=== PATIENT | female | born 1930 | race Caucasian/White ===

== ENCOUNTER 2016-12-15 13:47 | Inpatient (IN) | payer OTHER ==
[~2016-12-15] VITALS: Ht 160 cm; Wt 67.7 kg
[~2016-12-15 13:47] MED LIST: DIOVAN80 MG PO; HYDROCHLOROTHIA50 MG PO; HYDROCODON-ACE1 EAC7 PO; KEFLEX500 MG PO; PLAVIX75 MG PO; TOPROL XL50 MG PO; TRAMADOL HCL50 MG PO; TYLENOL EXTRA500 MG PO; ZYRTEC10 M2 PO
[2016-12-15 14:55] LABS: EOSINOPHIL (%) 0.5 % (0-5); HEMATOCRIT 34.9 % (36.0-46.0); IMMATURE GRANULOCYTE (%) 0.5 % (0.0-0.7); IMMATURE GRANULOCYTE COUNT 0.4 K/uL; LYMPHOCYTE COUNT 1.4 K/uL (1.0-2.8); MCH 30.7 PG (29.0-34.0); MCHC 33.5 G/DL (30.0-36.0); MCV 91.6 FL (83-99); MONOCYTE COUNT 0.5 K/uL (0-0.8); NEUTROPHIL (%) 75.9 % (45-76); NEUTROPHIL COUNT 6.3 K/uL (1.8-6.4); PLATELET COUNT 285 K/uL (156-360); RBC DIS.WIDTH-CV 13.2 % (11.8-14.6); RBC DIS.WIDTH-SD 43.2 % (39-53); RED BLOOD COUNT 3.81 M/uL (3.80-5.20); WHITE BLOOD COUNT 8.3 K/uL (4.1-10.2)
[2016-12-15 15:03] LABS: CHLORIDE 100 mEq/L (99-109); POTASSIUM 3.8 mEq/L (3.7-5.4); SODIUM 137 mEq/L (136-147)
[2016-12-15 15:05] LABS: GLUCOSE 173 mg/dL (70-99)
[2016-12-15 15:06] LABS: ANION GAP 11 MEQ/L (2-14)
[2016-12-15 15:09] LABS: GFR ESTIMATE (CALCULATED) 21 mL/min/
[2016-12-15 15:10] LABS: UREA NITROGEN (BUN) 94 mg/dL (9-23)
[2016-12-15 15:15] LABS: TROP-I INTERPRETATION NEGATIVE; TROPONIN-I 0.03 ng/mL (0.0-0.30)
[2016-12-15] MEDS ORDERED: TOPROL XL50 MG PO (21:06)
[2016-12-15] MEDS ORDERED: DIOVAN80 MG PO (21:06)
[2016-12-15] MEDS ORDERED: HYDROCHLOROTHIA50 MG PO (21:06)
[2016-12-15 22:07] LABS: ADD MIUA? YES; BILIRUBIN NEGATIVE; BLOOD NEGATIVE; COLOR YELLOW ((YELLOW)); GLUCOSE (STRIP) 100; KETONES NEGATIVE; LEUKOCYTES NEGATIVE; NITRITE NEGATIVE; PROTEIN (STRIP) NEGATIVE; SPECIFIC GRAVITY 1.023 (1.000-1.030); UROBILINOGEN 0.2 MG/DL (0.2-1.0)
[2016-12-15 22:26] LABS: BACTERIA NONE SEEN /HPF; CASTS NONE SEEN /LPF; CRYSTALS NONE SEEN; EPITHELIAL CELLS RARE /HPF; MUCUS NONE SEEN /LPF; PATHOLOGICAL CAST NONE SEEN; RED BLOOD CELLS 0-5 /HPF (0-5); SMALL ROUND CELL NONE SEEN; UCUL ADDED? NO; WHITE BLOOD CELLS 0-5 /HPF (0-5); YEAST-LIKE CELL NONE SEEN
[2016-12-15 23:15] VITALS: BP 180/80
[2016-12-16] VITALS (7 sets, daily range): BP systolic 112–190; BP diastolic 53–81
[2016-12-16 08:00] LABS: ANION GAP 11 MEQ/L (2-14); CHLORIDE 102 MEQ/L (99-109); POTASSIUM 3.3 MEQ/L (3.7-5.4); SAMPLE HEMOLYSIS CHECK 0; SAMPLE ICTERIC CHECK 0; SAMPLE LIPEMIA CHECK 0; SODIUM 138 MEQ/L (136-147); UREA NITROGEN (BUN) 65 mg/dL (9-23)
[2016-12-16 08:05] LABS: GFR ESTIMATE (CALCULATED) 35 mL/min/; GLUCOSE 113 mg/dL (70-99)
[2016-12-16 08:19] LABS: HEMATOCRIT 31.8 % (36.0-46.0); MCH 29.6 PG (29.0-34.0); MCHC 32.4 G/DL (30.0-36.0); MCV 91.4 FL (83-99); MEAN PLAT.VOLUME 10.2 uM^3 (9.5-12.4); PLATELET COUNT 234 K/uL (156-360); RBC DIS.WIDTH-CV 13.4 % (11.8-14.6); RBC DIS.WIDTH-SD 44.2 % (39-53); RED BLOOD COUNT 3.48 M/uL (3.80-5.20)
[2016-12-16 08:20] LABS: WHITE BLOOD COUNT 5.7 K/uL (4.1-10.2)
[2016-12-16 09:53] LABS: Estimated Average Glucose 123 mg/dL (70-123); HEMOGLOBIN A1c (GLYCOHEMOGLOB) 5.9 % HGB (Below 5.7)
[2016-12-16 10:32] LABS: ALKALINE PHOSPHATASE 62 IU/L (3-129); DIRECT BILIRUBIN 0.2 mg/dL (0.0-0.3); MAGNESIUM 1.9 mg/dl (1.3-2.7); TOTAL BILIRUBIN 0.8 MG/DL (0.0-1.0)
[2016-12-17] VITALS (8 sets, daily range): BP systolic 104–168; BP diastolic 52–73
[2016-12-17 07:29] LABS: EOSINOPHIL (%) 2.4 % (0-5); EOSINOPHIL COUNT 0.2 K/uL (0-0.3); HEMATOCRIT 32.5 % (36.0-46.0); IMMATURE GRANULOCYTE (%) 0.2 % (0.0-0.7); LYMPHOCYTE COUNT 2.4 K/uL (1.0-2.8); MCH 30.3 PG (29.0-34.0); MCHC 32.6 G/DL (30.0-36.0); MCV 92.9 FL (83-99); MEAN PLAT.VOLUME 10.2 uM^3 (9.5-12.4); MONOCYTE (%) 6.1 % (3-12); MONOCYTE COUNT 0.4 K/uL (0-0.8); NEUTROPHIL (%) 55.3 % (45-76); NEUTROPHIL COUNT 3.6 K/uL (1.8-6.4); PLATELET COUNT 226 K/uL (156-360); RBC DIS.WIDTH-CV 13.4 % (11.8-14.6); RBC DIS.WIDTH-SD 45.2 % (39-53); WHITE BLOOD COUNT 6.6 K/uL (4.1-10.2)
[2016-12-17 07:58] LABS: ALKALINE PHOSPHATASE 56 IU/L (3-129); ANION GAP 10 MEQ/L (2-14); CHLORIDE 102 MEQ/L (99-109); GFR ESTIMATE (CALCULATED) 41 mL/min/; GLUCOSE 107 mg/dL (70-99); SAMPLE HEMOLYSIS CHECK 0; SAMPLE ICTERIC CHECK 0; SAMPLE LIPEMIA CHECK 0; SODIUM 135 MEQ/L (136-147); TOTAL BILIRUBIN 0.7 MG/DL (0.0-1.0); UREA NITROGEN (BUN) 42 mg/dL (9-23)
[2016-12-17 10:26] LABS: ABSOLUTE RETICULOCYTE CT. 0.04 M/uL (0.02-0.08); IMM.RETIC FRACTION 2.8 % (3-19); RETICULOCYTE COUNT 1.1 % (0.5-1.8)
[2016-12-17 11:23] LABS: IRON 75 MCG/DL (35-150)
[2016-12-18 03:26] VITALS: BP 122/63
[2016-12-18 07:50] VITALS: BP 130/59
[2016-12-18 07:56] LABS: EOSINOPHIL (%) 2.9 % (0-5); EOSINOPHIL COUNT 0.2 K/uL (0-0.3); HEMATOCRIT 30.8 % (36.0-46.0); IMMATURE GRANULOCYTE (%) 0.6 % (0.0-0.7); LYMPHOCYTE COUNT 2.3 K/uL (1.0-2.8); MCH 30.4 PG (29.0-34.0); MCHC 32.5 G/DL (30.0-36.0); MCV 93.6 FL (83-99); MEAN PLAT.VOLUME 10.6 uM^3 (9.5-12.4); MONOCYTE (%) 6.5 % (3-12); MONOCYTE COUNT 0.4 K/uL (0-0.8); NEUTROPHIL COUNT 3.7 K/uL (1.8-6.4); PLATELET COUNT 228 K/uL (156-360); RBC DIS.WIDTH-CV 13.5 % (11.8-14.6); RBC DIS.WIDTH-SD 46.3 % (39-53); RED BLOOD COUNT 3.29 M/uL (3.80-5.20); WHITE BLOOD COUNT 6.6 K/uL (4.1-10.2)
[2016-12-18 08:07] LABS: ALKALINE PHOSPHATASE 56 IU/L (3-129); ANION GAP 7 MEQ/L (2-14); CHLORIDE 103 MEQ/L (99-109); GFR ESTIMATE (CALCULATED) 45 mL/min/; GLUCOSE 113 mg/dL (70-99); POTASSIUM 3.7 MEQ/L (3.7-5.4); SAMPLE HEMOLYSIS CHECK 0; SAMPLE ICTERIC CHECK 0; SAMPLE LIPEMIA CHECK 0; SODIUM 137 MEQ/L (136-147); UREA NITROGEN (BUN) 31 mg/dL (9-23)
[2016-12-18 08:13] LABS: TOTAL BILIRUBIN 0.5 MG/DL (0.0-1.0)
[2016-12-18 12:00] VITALS: BP 176/75
== END 2016-12-18 15:30 | DRG 675 ==
LOC: EME → EDBD 13:47 → 2EASTP 16:13 → EDOF 16:13 → 2EASTP 22:41
PROVIDERS: Emergency Medicine; Hospitalist
DX: N17.9 Acute kidney failure, unspecified (principal); E87.6 Hypokalemia; I11.9 Hypertensive heart disease without heart failure; E88.09 Other disorders of plasma-protein metabolism, not elsewhere classified; E86.0 Dehydration; Z60.2 Problems related to living alone; I65.21 Occlusion and stenosis of right carotid artery; R63.0 Anorexia; J44.9 Chronic obstructive pulmonary disease, unspecified; G47.00 Insomnia, unspecified; F41.9 Anxiety disorder, unspecified; R73.9 Hyperglycemia, unspecified; D64.9 Anemia, unspecified; I25.118 Atherosclerotic heart disease of native coronary artery with other forms of angina pectoris; E66.9 Obesity, unspecified; E78.5 Hyperlipidemia, unspecified; H40.9 Unspecified glaucoma; I27.2 Other secondary pulmonary hypertension; I35.0 Nonrheumatic aortic (valve) stenosis; I35.8 Other nonrheumatic aortic valve disorders; Z68.26 Body mass index [BMI] 26.0-26.9, adult; I25.2 Old myocardial infarction
CPT/HCPCS: 71020; 80048; 80053; 80076; 81003; 82272; 82607; 82728; 82746; 82948; 83036; 83540; 83735; 84466; 84484; 85025; 85027; 85045; 93005; 93306; 93970; 99281; 99285; J1644; J1815; J3480; J7030

== ENCOUNTER 2017-01-29 18:48 | Emergency (ER) | payer OTHER ==
[~2017-01-29] VITALS: Ht 152.4 cm; Wt 74.4 kg
[2017-01-29 19:57] LABS: HEMATOCRIT 33.6 % (36.0-46.0); MCH 29.9 PG (29.0-34.0); MCHC 31.5 G/DL (30.0-36.0); MCV 94.9 FL (83-99); MEAN PLAT.VOLUME 9.5 uM^3 (9.5-12.4); PLATELET COUNT 274 K/uL (156-360); RBC DIS.WIDTH-CV 14.5 % (11.8-14.6); RBC DIS.WIDTH-SD 50.6 % (39-53); RED BLOOD COUNT 3.54 M/uL (3.80-5.20)
[2017-01-29 20:08] LABS: CHLORIDE 101 mEq/L (99-109); POTASSIUM 3.4 mEq/L (3.7-5.4); SODIUM 141 mEq/L (136-147)
[2017-01-29 20:10] LABS: GLUCOSE 121 mg/dL (70-99)
[2017-01-29 20:11] LABS: ANION GAP 11 MEQ/L (2-14)
[2017-01-29 20:13] LABS: GFR ESTIMATE (CALCULATED) 45 mL/min/
[2017-01-29 20:14] LABS: UREA NITROGEN (BUN) 24 mg/dL (9-23)
[2017-01-29 21:33] LABS: ADD MIUA? YES; BILIRUBIN NEGATIVE; BLOOD SMALL; COLOR YELLOW ((YELLOW)); GLUCOSE (STRIP) NEGATIVE; KETONES NEGATIVE; LEUKOCYTES NEGATIVE; NITRITE NEGATIVE; PROTEIN (STRIP) NEGATIVE; SPECIFIC GRAVITY 1.009 (1.000-1.030); UROBILINOGEN 0.2 MG/DL (0.2-1.0)
[2017-01-29 21:52] LABS: BACTERIA NONE SEEN /HPF; EPITHELIAL CELLS RARE /HPF; HYALINE CASTS 0-5 /LPF; MUCUS TRACE /LPF; RED BLOOD CELLS 0-5 /HPF (0-5); WHITE BLOOD CELLS 0-5 /HPF (0-5)
[2017-01-29 22:51] VITALS: BP 142/65
== END 2017-01-29 22:52 | disposition home or self-care (01) ==
LOC: EME → EDBD 18:48 → EME 22:52
PROVIDERS: Emergency Medicine
DX: K64.4 Residual hemorrhoidal skin tags (principal); K62.5 Hemorrhage of anus and rectum; I10 Essential (primary) hypertension
CPT/HCPCS: 80048; 81003; 85027; 86850; 86900; 86901; 87086; 99281; 99285; J7030

== ENCOUNTER 2017-03-03 20:32 | Emergency (ER) | payer OTHER ==
[~2017-03-03] VITALS: Ht 160 cm; Wt 75.7 kg
[2017-03-03 21:39] LABS: EOSINOPHIL COUNT 0.2 K/uL (0-0.3); HEMATOCRIT 32.6 % (36.0-46.0); IMMATURE GRANULOCYTE (%) 0.3 % (0.0-0.7); INSTRUMENT ABS NEUTROPHIL CT 4.7 K/uL; MCH 30.6 PG (29.0-34.0); MCHC 31.3 G/DL (30.0-36.0); MCV 97.9 FL (83-99); MEAN PLAT.VOLUME 9.2 uM^3 (9.5-12.4); MONOCYTE (%) 6.9 % (3-12); MONOCYTE COUNT 0.5 K/uL (0-0.8); NEUTROPHIL (%) 63.3 % (45-76); NEUTROPHIL COUNT 4.7 K/uL (1.8-6.4); PLATELET COUNT 241 K/uL (156-360); RBC DIS.WIDTH-CV 14.2 % (11.8-14.6); RBC DIS.WIDTH-SD 50.7 % (39-53); RED BLOOD COUNT 3.33 M/uL (3.80-5.20); WHITE BLOOD COUNT 7.4 K/uL (4.1-10.2)
[2017-03-03 21:48] LABS: CHLORIDE 103 mEq/L (99-109); POTASSIUM 4.4 mEq/L (3.7-5.4); SODIUM 143 mEq/L (136-147)
[2017-03-03 21:50] LABS: GLUCOSE 122 mg/dL (70-99)
[2017-03-03 21:51] LABS: ANION GAP 10 MEQ/L (2-14)
[2017-03-03 21:52] LABS: TOTAL BILIRUBIN 0.4 mg/dL (0.0-1.0)
[2017-03-03 21:54] LABS: ALKALINE PHOSPHATASE 73 IU/L (3-129); GFR ESTIMATE (CALCULATED) 35 mL/min/
[2017-03-03 21:55] LABS: UREA NITROGEN (BUN) 24 mg/dL (9-23)
[2017-03-03 21:59] LABS: TROP-I INTERPRETATION NEGATIVE; TROPONIN-I 0.02 ng/mL (0.0-0.30)
[2017-03-03 22:46] LABS: ADD MIUA? NO; BILIRUBIN NEGATIVE; BLOOD NEGATIVE; COLOR STRAW ((YELLOW)); GLUCOSE (STRIP) NEGATIVE; KETONES NEGATIVE; LEUKOCYTES NEGATIVE; NITRITE NEGATIVE; PROTEIN (STRIP) NEGATIVE; UCUL ADDED? NO; UROBILINOGEN 0.2 MG/DL (0.2-1.0)
[2017-03-04 01:14] VITALS: BP 180/77
== END 2017-03-04 01:13 | disposition home or self-care (01) ==
LOC: EME 20:32
PROVIDERS: Emergency Medicine
DX: R51 Headache (principal); I10 Essential (primary) hypertension; H53.8 Other visual disturbances; E11.9 Type 2 diabetes mellitus without complications; J44.9 Chronic obstructive pulmonary disease, unspecified; I25.2 Old myocardial infarction; Z85.42 Personal history of malignant neoplasm of other parts of uterus
CPT/HCPCS: 70450; 71010; 80053; 81003; 83880; 84484; 85025; 93005; 99281; 99284

== ENCOUNTER 2018-04-01 12:18 | Emergency (ER) | payer OTHER ==
[~2018-04-01] VITALS: Ht 162.6 cm; Wt 80.9 kg
[2018-04-01 12:53] LABS: HEMATOCRIT 32.4 % (36.0-46.0); HEMOGLOBIN 10.7 G/DL (11.9-15.5); MCH 32.4 PG (29.0-34.0); MCV 98.2 FL (83-99); PLATELET COUNT 203 K/uL (156-360); RBC DIS.WIDTH-CV 12.7 % (11.8-14.6); RBC DIS.WIDTH-SD 45.5 % (39-53); WHITE BLOOD COUNT 5.3 K/uL (4.1-10.2)
[2018-04-01 13:01] LABS: CHLORIDE 98 mEq/L (99-109); SODIUM 141 mEq/L (136-147)
[2018-04-01 13:03] LABS: GLUCOSE 118 mg/dL (70-99)
[2018-04-01 13:07] LABS: CREATININE 1.3 mg/dL (0.6-1.3); GFR ESTIMATE (CALCULATED) 41 mL/min/
[2018-04-01 13:08] LABS: UREA NITROGEN (BUN) 38 mg/dL (9-23)
[2018-04-01 14:06] LABS: TROP-I INTERPRETATION NEGATIVE; TROPONIN-I 0.01 ng/mL (0.0-0.30)
[2018-04-01 18:36] VITALS: BP 154/58
[2018-04-02] MEDS ORDERED: ANUSOL-HC21 GM PR (14:09)
== END 2018-04-01 19:35 | disposition home or self-care (01) ==
LOC: EME 12:18
PROVIDERS: Family Medicine
DX: K57.30 Diverticulosis of large intestine without perforation or abscess without bleeding (principal); R41.0 Disorientation, unspecified; I10 Essential (primary) hypertension; J44.9 Chronic obstructive pulmonary disease, unspecified; E11.9 Type 2 diabetes mellitus without complications; I25.2 Old myocardial infarction; Z85.42 Personal history of malignant neoplasm of other parts of uterus; Z88.8 Allergy status to other drugs, medicaments and biological substances
CPT/HCPCS: 71046; 74176; 80048; 83880; 84484; 85027; 93005; 99281; 99285

== ENCOUNTER 2018-04-02 11:51 | Emergency (ER) | payer OTHER ==
[~2018-04-02] VITALS: Ht 165.1 cm; Wt 81.3 kg
[2018-04-02 13:13] LABS: BASOPHIL (%) 0.2 % (0-1); EOSINOPHIL (%) 1.5 % (0-5); EOSINOPHIL COUNT 0.1 K/uL (0-0.3); HEMATOCRIT 34.1 % (36.0-46.0); HEMOGLOBIN 11.1 G/DL (11.9-15.5); IMMATURE GRANULOCYTE (%) 0.5 % (0.0-0.7); LYMPHOCYTE COUNT 1.3 K/uL (1.0-2.8); MCH 32.3 PG (29.0-34.0); MCHC 32.6 G/DL (30.0-36.0); MCV 99.1 FL (83-99); MONOCYTE (%) 8.1 % (3-12); MONOCYTE COUNT 0.5 K/uL (0-0.8); NEUTROPHIL (%) 68.7 % (45-76); NEUTROPHIL COUNT 4.2 K/uL (1.8-6.4); PLATELET COUNT 198 K/uL (156-360); RBC DIS.WIDTH-CV 12.8 % (11.8-14.6); RBC DIS.WIDTH-SD 46.4 % (39-53); RED BLOOD COUNT 3.44 M/uL (3.80-5.20); WHITE BLOOD COUNT 6.1 K/uL (4.1-10.2)
[2018-04-02 13:24] LABS: CHLORIDE 101 mEq/L (99-109); POTASSIUM 4.2 mEq/L (3.7-5.4); SODIUM 144 mEq/L (136-147)
[2018-04-02 13:26] LABS: GLUCOSE 120 mg/dL (70-99)
[2018-04-02 13:30] LABS: CREATININE 1.1 mg/dL (0.6-1.3); GFR ESTIMATE (CALCULATED) 50 mL/min/
[2018-04-02 13:31] LABS: UREA NITROGEN (BUN) 31 mg/dL (9-23)
[2018-04-02] MEDS ORDERED: ANUSOL-HC21 GM PR (14:09)
[2018-04-02 15:25] VITALS: BP 184/71
== END 2018-04-02 15:30 | disposition home or self-care (01) ==
LOC: EME 11:51
PROVIDERS: Emergency Medicine
DX: K64.4 Residual hemorrhoidal skin tags (principal); K62.5 Hemorrhage of anus and rectum; K57.90 Diverticulosis of intestine, part unspecified, without perforation or abscess without bleeding; I25.2 Old myocardial infarction; Z85.42 Personal history of malignant neoplasm of other parts of uterus; J44.9 Chronic obstructive pulmonary disease, unspecified; I10 Essential (primary) hypertension; E11.9 Type 2 diabetes mellitus without complications; Z88.8 Allergy status to other drugs, medicaments and biological substances; Z88.1 Allergy status to other antibiotic agents; Z88.5 Allergy status to narcotic agent; Z88.7 Allergy status to serum and vaccine
CPT/HCPCS: 80048; 85025; 99281; 99285